=== PATIENT | female | born 1990 | race Two or more races ===

== ENCOUNTER 2021-09-11 10:21 | Emergency (ER) | payer MEDICAID ==
[~2021-09-11] VITALS: Ht 160 cm; Wt 72.6 kg
--- NOTE | 2021-09-11 10:40 | NUR ---
BIBS FOR C/O EPIGASTRIC PAIN 06/10 SINCE 0500,H/O GALLSTONE. ABDOMEN SOFT AND NON-DISTENDED.WILL CONTINUE TO MONITOR THE PATIENT.
[2021-09-11] MEDS ORDERED: MORPHINE SULFATE INJ 2 MG/ML DISP.SYRIN IV ONE (11:00)
[2021-09-11] MEDS ORDERED: IV NS 0.9% 1,000 ML BAG IV ONE (11:00)
[2021-09-11] MEDS ORDERED: ONDANSETRON HCL/PF 4 MG/2 ML VIAL IVP ONE (11:00)
[2021-09-11] MEDS ORDERED: MORPHINE SULFATE INJ 4 MG/ML DISP.SYRIN ONE (11:08)
[2021-09-11] MEDS ORDERED: ONDANSETRON HCL/PF 4 MG/2 ML VIAL ONE (11:08)
[2021-09-11 11:14] LABS: BASOPHILS % (AUTO) 0.5 % (0.0-2.0); HEMATOCRIT 37 % (33-45); HEMOGLOBIN 12.4 g/dL (11.5-14.8); LYMPHOCYTES # (AUTO) 2.6 K/uL (0.8-4.8); LYMPHOCYTES % (AUTO) 31.7 % (20.0-44.0); MEAN CORPUSCULAR HGB CONC 33 g/dl (31.0-36.0); MEAN CORPUSCULAR VOLUME 90 fL (82-100); MONOCYTES # (AUTO) 0.6 K/uL (0.1-1.30); MONOCYTES % (AUTO) 7.3 % (2.0-12.0); NEUTROPHILS # (AUTO) 4.9 K/uL (1.8-8.9); NEUTROPHILS % (AUTO) 58.5 % (43.0-81.0); PLATELET COUNT (AUTO) 263 K/uL (150-450); RED BLOOD CELL COUNT(AUTO) 4.14 MIL/uL (4.0-5.2); WHITE BLOOD COUNT (AUTO) 8.4 K/uL (4.3-11.0)
[2021-09-11 11:46] LABS: CALCIUM, SERUM 8.3 mg/dL (8.5-10.1); CREATININE 0.7 mg/dL (0.6-1.3); POTASSIUM 3.6 mmol/L (3.5-5.1)
[2021-09-11 11:52] LABS: ALBUMIN 3.6 g/dL (3.4-5.0); BILIRUBIN,DIRECT 0.1 mg/dL (0.0-0.2); BILIRUBIN,TOTAL 0.3 mg/dL (0.2-1.0); TOTAL PROTEIN, SERUM 7.7 g/dL (6.4-8.2)
[2021-09-11] MEDS ORDERED: MAG HYDROX/AL HYDROX/SIMETH 30 ML UDC PO ONE (12:00)
[2021-09-11] MEDS ORDERED: LIDOCAINE VISCOUS 2% UD 15 ML UDC MM ONE (12:00)
[2021-09-11] MEDS ORDERED: KETOROLAC TROMETHAMINE INJ 30 MG/ML VIAL IV ONE (12:00)
[2021-09-11] MEDS ORDERED: IBUP-1957 PO (12:05)
[2021-09-11] MEDS ORDERED: TRAM50TA2 PO (12:05)
[2021-09-11] MEDS ORDERED: LIDOCAINE VISCOUS 2% UD 15 ML UDC ONE (12:48)
[2021-09-11] MEDS ORDERED: MAG HYDROX/AL HYDROX/SIMETH 30 ML UDC ONE (12:48)
[2021-09-11] MEDS ORDERED: KETOROLAC TROMETHAMINE INJ 30 MG/ML VIAL ONE (12:48)
--- NOTE | 2021-09-11 13:02 | NUR ---
IV removed. Catheter intact and site benign. Pressure and 4x4 applied to site. No bleeding noted.Patient discharged to home in stable condition. Written and verbal after care instructions given. Patient verbalizes understanding of instruction.
[2021-09-11 13:03] VITALS: BP 126/85
== END 2021-09-11 13:04 | disposition home or self-care (01) ==
LOC: ER 10:26
DX: R10.13 Epigastric pain (principal); Z88.2 Allergy status to sulfonamides; Z79.899 Other long term (current) drug therapy
CPT/HCPCS: 36415; 76705; 80048; 80076; 83690; 84703; 85025; 96361; 96374; 96375; 99284; J1885; J2270; J2405; J7030

== ENCOUNTER 2022-07-02 19:37 | Emergency (ER) | payer MEDICAID ==
[~2022-07-02] VITALS: Ht 162.6 cm; Wt 77.1 kg
[~2022-07-02 19:37] MED LIST: IBUP-1957 PO; TRAM50TA2 PO
--- NOTE | 2022-07-02 20:35 | NUR ---
SERINA FROM HOME C/O ABD "GALLBLADDER" AND BACK PAIN X2 DAYS. PATIENT TOOK IBUPROFEN BUT NO RELIEF. PATIENT IS AAOX4. ABLE TO MAKE NEEDS KNOWN. ATTACHED TO MONITOR. VITALS CHECKED.
--- NOTE | 2022-07-02 20:41 | NUR ---
URINE COLLECTED AND SENT TO LAB
--- NOTE | 2022-07-02 20:54 | NUR ---
Norah carlos in ED - 07/02/22 at 2055 by ANDRES Patient discharged to home in stable condition. Written and verbal after care instructions given. Patient verbalizes understanding of instruction.
--- NOTE | 2022-07-02 20:55 | NUR ---
MANUEL DONE AT BEDSIDE
--- NOTE | 2022-07-02 21:00 | NUR ---
SEEN BY ALENA GREENBERG AT BEDSIDE
--- NOTE | 2022-07-02 21:18 | NUR ---
SEEN BY DR SNYDER
--- NOTE | 2022-07-02 21:28 | NUR ---
SEEN BY DR TAVERA AT BEDSIDE
[2022-07-02 21:30] LABS: BASOPHILS % (AUTO) 0.2 % (0.0-2.0); HEMATOCRIT 36 % (33-45); HEMOGLOBIN 11.9 g/dL (11.5-14.8); LYMPHOCYTES # (AUTO) 2.5 K/uL (0.8-4.8); LYMPHOCYTES % (AUTO) 26.5 % (20.0-44.0); MEAN CORPUSCULAR HGB CONC 33 g/dl (31.0-36.0); MEAN CORPUSCULAR VOLUME 90 fL (82-100); MONOCYTES # (AUTO) 0.7 K/uL (0.1-1.30); MONOCYTES % (AUTO) 7.7 % (2.0-12.0); NEUTROPHILS % (AUTO) 62.6 % (43.0-81.0); PLATELET COUNT (AUTO) 223 K/uL (150-450); RED BLOOD CELL COUNT(AUTO) 3.96 MIL/uL (4.0-5.2); WHITE BLOOD COUNT (AUTO) 9.5 K/uL (4.3-11.0)
[2022-07-02] MEDS ORDERED: ONDANSETRON HCL 4 MG/5 ML SOLUTION PO ONE (21:30)
[2022-07-02 21:49] LABS: CALCIUM, SERUM 8.8 mg/dL (8.5-10.1); CREATININE 0.7 mg/dL (0.6-1.3); POTASSIUM 3.7 mmol/L (3.5-5.1)
[2022-07-02] MEDS ORDERED: ONDANSETRON 4 MG TAB.RAPDIS ONE (21:58)
[2022-07-02 22:00] LABS: BILIRUBIN,URINE NEGATIVE (NEGATIVE); COLOR,URINE YELLOW (YELLOW); LEUKOCYTE ESTERASE ,URINE NEGATIVE (NEGATIVE); NITRITE, URINE NEGATIVE (NEGATIVE); PROTEIN,URINE NEGATIVE (NEGATIVE); UGLUCOSE NEGATIVE (NEGATIVE); UROBILINOGEN,URINE 0.2 EU/dL (0.2)
[2022-07-02 22:01] LABS: BILIRUBIN,DIRECT 0.2 mg/dL (0.0-0.2); BILIRUBIN,TOTAL 0.8 mg/dL (0.2-1.0)
[2022-07-02] MEDS ORDERED: KETOROLAC TROMETHAMINE INJ 60 MG/2 ML VIAL IM ONE ×2 (22:16→22:26)
[2022-07-02] MEDS ORDERED: IBUP-1955 PO (22:53)
[2022-07-02] MEDS ORDERED: ONDA4TAB5 PO (22:53)
--- NOTE | 2022-07-02 23:04 | NUR ---
Patient discharged to home in stable condition. Written and verbal after care instructions given. Patient verbalizes understanding of instruction.
[2022-07-02 23:05] VITALS: BP 115/73
[2022-07-03 00:08] LABS: BACTERIA,URINE Rare /HPF (None Seen); RBC,URINE 0-2 /HPF (0-2); SQUAMOUS EPITHELIAL CELL,UR Moderate /HPF (None Seen)
[2022-07-05] MEDS ORDERED: ONDA4TAB5 PO (07:24)
[2022-07-05] MEDS ORDERED: AMOX-430 PO (07:24)
[2022-07-05] MEDS ORDERED: HYDR-3972 PO (07:24)
== END 2022-07-02 23:05 | disposition home or self-care (01) ==
LOC: ER 19:45
DX: K80.50 Calculus of bile duct without cholangitis or cholecystitis without obstruction (principal); K80.20 Calculus of gallbladder without cholecystitis without obstruction; R10.11 Right upper quadrant pain; Z88.2 Allergy status to sulfonamides; Z79.899 Other long term (current) drug therapy
CPT/HCPCS: 99284; 76705; 96372; 85025; 80048; 83690; 80076; 84703; 81001; 36415; J1885; Q0162

== ENCOUNTER 2022-07-03 12:04 | Inpatient (IN) | payer MEDICAID ==
[~2022-07-03] VITALS: Ht 165.1 cm; Wt 77.1 kg
[~2022-07-03 12:04] MED LIST changes: +IBUP-1955 PO; +ONDA4TAB5 PO
--- NOTE | 2022-07-03 12:15 | NUR ---
Received pt 31 yrs female came from home walking in c/o abdominale pain since yesterday and DX WITH CHOLESITITIS
[2022-07-03] MEDS ORDERED: MORPHINE SULFATE INJ 2 MG/ML DISP.SYRIN IV ONE (12:30)
[2022-07-03] MEDS ORDERED: ONDANSETRON HCL/PF - ER 4 MG/2 ML VIAL IV ONE (12:30)
[2022-07-03] MEDS ORDERED: ONDANSETRON HCL/PF 4 MG/2 ML VIAL ONE (12:36)
[2022-07-03] MEDS ORDERED: MORPHINE SULFATE INJ 4 MG/ML DISP.SYRIN ONE (12:36)
--- NOTE | 2022-07-03 12:50 | NUR ---
blood drow by lab tach
[2022-07-03 12:55] LABS: CALCIUM, SERUM 8.8 mg/dL (8.5-10.1); CREATININE 0.8 mg/dL (0.6-1.3); POTASSIUM 3.9 mmol/L (3.5-5.1)
[2022-07-03 13:01] LABS: ALBUMIN 3.8 g/dL (3.4-5.0); BILIRUBIN,DIRECT 0.3 mg/dL (0.0-0.2); BILIRUBIN,TOTAL 0.9 mg/dL (0.2-1.0); TOTAL PROTEIN, SERUM 7.9 g/dL (6.4-8.2)
--- NOTE | 2022-07-03 13:13 | NUR ---
ABDOMINAL US DONE AT BED SIDE
[2022-07-03 13:19] LABS: BASOPHILS % (AUTO) 0.4 % (0.0-2.0); EOSINOPHILS % (AUTO) 3.3 % (0.0-6.0); HEMATOCRIT 35 % (33-45); HEMOGLOBIN 12.2 g/dL (11.5-14.8); LYMPHOCYTES # (AUTO) 1.8 K/uL (0.8-4.8); LYMPHOCYTES % (AUTO) 17.7 % (20.0-44.0); MEAN CORPUSCULAR HGB CONC 34 g/dl (31.0-36.0); MEAN CORPUSCULAR VOLUME 88 fL (82-100); MONOCYTES % (AUTO) 9.5 % (2.0-12.0); NEUTROPHILS % (AUTO) 69.1 % (43.0-81.0); PLATELET COUNT (AUTO) 230 K/uL (150-450); RED BLOOD CELL COUNT(AUTO) 4.02 MIL/uL (4.0-5.2); WHITE BLOOD COUNT (AUTO) 10.1 K/uL (4.3-11.0)
--- NOTE | 2022-07-03 13:44 | NUR ---
DR. SNYDER SPEAKING WITH DR. JOHNSON.
--- NOTE | 2022-07-03 13:54 | NUR ---
MOVE SHEET SUBMITTED.
[2022-07-03] MEDS ORDERED: PIPERACILLIN /TAZOBACTAM 3.375 G in IV D5W 50 ML IV ONE (14:30)
--- NOTE | 2022-07-03 15:00 | NUR ---
UA SENT TO LAB
--- NOTE | 2022-07-03 15:10 | NUR ---
COVID SWAB SENT TO LAB
--- NOTE | 2022-07-03 16:36 | NUR ---
[facility] CALLED FIBER TECHNOLOGIST PAGED.
--- NOTE | 2022-07-03 16:40 | NUR ---
[facility] for medicale floor bed
[2022-07-03] MEDS ORDERED: ACETAMINOPHEN 325 MG TABLET PO PRN (17:00)
--- NOTE | 2022-07-03 17:03 | NUR ---
GOT BED 321-2
--- NOTE | 2022-07-03 17:40 | NUR ---
HAND OFF GEORGINA RN TO ROOM 325-1 VS STABLE
--- NOTE | 2022-07-03 18:08 | NUR ---
RN MS NOTES RECEIVED PT FROM E.R. STAFF VIA ISABEL, PT IS AWAKE, ALERT AND ORIENTED, NOT IN DISTRESS, NO COMPLAINT AT THIS TIME, STATES THAT SHE IS HUNGRY, ROOM SET UP ORIENTATION PROVIDED TO PT, VERBALIZED UNDERSTANDING, VITALS TAKEN AND RECORDED, SEEN AND EXAMINED BY DR. SNYDER, ORDERS GIVEN FOR LAPAROSCOPIC CHOLECYSTECTOMY POSSIBLE OPEN FOR TOMORROW, NPO AFTER MIDNIGHT, PT INFORMED, KEPT COMFORTABLE IN BED.
[2022-07-03 18:12] VITALS: BP 123/78
[2022-07-03] MEDS: IV NS 0.9% 1,000 ML IV SCH (18:25)
[2022-07-03] MEDS: MORPHINE SULFATE INJ 2 MG/ML DISP.SYRIN IV PRN ×2 (18:26→22:46)
[2022-07-03 18:30] VITALS: BP 123/78
--- NOTE | 2022-07-03 19:34 | NUR ---
RN OPENING NOTES; RECEIVED PT IN BED AAOX4 ABLE TO MAKE NEEDS KNOWN,AHMET WELL ON RM AIR,NO SIGN SOB/DISTRESS NOTED.NO COMPLAIN OF PAIN/DISCOMFORT AT THIS TIME,IV ACCESS ONR WRIST 20G.PATETN AND INTACT,SAFETY MEASURE INPLACE,CALL LIGHT WITHIN REACH.WILL CONTINUE TO MONITOR.
[2022-07-03 20:00] VITALS: BP 122/89
[2022-07-03] MEDS: CEFEPIME 2 GM in IV D5W 100 ML IV SCH (20:08)
--- NOTE | 2022-07-03 22:46 | NUR ---
RN NOTES; PT COMPLAINED OD ABDOMINAL PAIN 8/10'PRN MORPHINE 2MG WAS GIVEN.NO SIGN A/R NOTED.
[2022-07-04] MEDS: MORPHINE SULFATE INJ 2 MG/ML DISP.SYRIN IV PRN ×3 (03:20→19:17)
--- NOTE | 2022-07-04 03:27 | NUR ---
RN NOTES; PT COMPLAINED OD ABDOMINAL PAIN 8/10'PRN MORPHINE 2MG WAS GIVEN.NO SIGN A/R NOTED.
[2022-07-04] MEDS: CEFEPIME 2 GM in IV D5W 100 ML IV SCH ×3 (04:06→20:42)
[2022-07-04] MEDS: IV NS 0.9% 1,000 ML IV SCH ×2 (05:31→20:05)
--- NOTE | 2022-07-04 06:19 | NUR ---
RN CLOSING NOTES; PT IN BED AAOX4 ABLE TO MAKE NEEDS KNOWN,AHMET WELL ON RM AIR,NO SIGN SOB/DISTRESS NOTED.PT COMPLAIN OF ABDOMINAL PAIN 8/,PRN MORPHINE 2MG WAS GIVEN,NO A/R NOTED,DUE MEDS GIVEN ORDER.ALL NEEDS ATTENDED,PT WAS NPO BEFORE MIDNIGHT,IV ACCESS ON R WRIST 20G WITH NS 0.9% @ 75ML/HR.PATETN AND INTACT,SAFETY MEASURE INPLACE,CALL LIGHT WITHIN REACH.WILL ENDORSED TO NEXT SHIFT.
[2022-07-04 06:53] LABS: BASOPHILS % (AUTO) 0.3 % (0.0-2.0); EOSINOPHILS % (AUTO) 2.3 % (0.0-6.0); HEMATOCRIT 33 % (33-45); HEMOGLOBIN 11.1 g/dL (11.5-14.8); LYMPHOCYTES # (AUTO) 1.9 K/uL (0.8-4.8); LYMPHOCYTES % (AUTO) 19.5 % (20.0-44.0); MEAN CORPUSCULAR HGB CONC 33 g/dl (31.0-36.0); MEAN CORPUSCULAR VOLUME 90 fL (82-100); MONOCYTES # (AUTO) 0.8 K/uL (0.1-1.30); MONOCYTES % (AUTO) 7.7 % (2.0-12.0); NEUTROPHILS # (AUTO) 6.9 K/uL (1.8-8.9); NEUTROPHILS % (AUTO) 70.2 % (43.0-81.0); PLATELET COUNT (AUTO) 211 K/uL (150-450); RED BLOOD CELL COUNT(AUTO) 3.67 MIL/uL (4.0-5.2); WHITE BLOOD COUNT (AUTO) 9.8 K/uL (4.3-11.0)
[2022-07-04 07:03] LABS: ALBUMIN 3.3 g/dL (3.4-5.0); BILIRUBIN,TOTAL 0.9 mg/dL (0.2-1.0); CREATININE 0.7 mg/dL (0.6-1.3); MAGNESIUM 1.9 mg/dL (1.8-2.4); PHOSPHORUS 3.2 mg/dL (2.5-4.9); POTASSIUM 3.7 mmol/L (3.5-5.1); TOTAL PROTEIN, SERUM 7.3 g/dL (6.4-8.2)
[2022-07-04] MEDS ORDERED: FENTANYL PF 100MCG/2ML AMPUL ONE (07:07)
[2022-07-04] MEDS ORDERED: HYDROMORPHONE INJ 2 MG/ML DISP.SYRIN ONE (07:07)
[2022-07-04] MEDS ORDERED: MIDAZOLAM HCL 2 MG/2ML VIAL ONE (07:07)
[2022-07-04] MEDS ORDERED: ROCURONIUM BROMIDE 50 MG/5 ML ONE (07:08)
[2022-07-04] MEDS ORDERED: FAMOTIDINE/PF INJ 20 MG/2 ML VIAL IV ONE (07:08)
[2022-07-04] MEDS ORDERED: BUPIVACAINE MPF 0.5% W/EPI INJ 30 ML VIAL ONE (07:10)
[2022-07-04] MEDS ORDERED: LIDOCAINE 1% INJ 50 ML MDV IJ ONE (07:10)
[2022-07-04] MEDS ORDERED: ANESTHESIA TRAY IN PYXIS 1 EA TRAY MC ONE (07:11)
--- NOTE | 2022-07-04 07:15 | NUR ---
MS RN OPENING NOTES: RECEIVED PT IN BED AWAKE, AOX4 ABLE TO MAKE NEEDS KNOWN. ON RA WITH NO S/S OF SOB/DISTRESS NOTED. PT REPORTS TOLERABLE PAIN AT 2-3/10 AT THE MOMENT . IV ACCESS ON R WRIST 20G WITH NS 0.9% @ 75ML/HR. SAFETY MEASURES IN PLACE, CALL LIGHT AND TABLE WITHIN REACH, WILL CONT WITH PLAN OF CARE DURING SHIFT.
--- NOTE | 2022-07-04 07:16 | NUR ---
MS RN NOTES: PT TRANSPORTED TO OR VIA GURNEY BY OR STAFF. VS, WNL, CHECKLIST AND CONSENTS COMPLETED.
[2022-07-04] MEDS ORDERED: BACITRACIN ZINC OINT PACKET 1 EA PACKET TP ONE (09:43)
--- NOTE | 2022-07-04 11:04 | NUR ---
MS RN NOTES: PT CAME BACK FROM OR VIA SAM @7971. PT STABLE, AWAKE, A/OX4. RECEIVED BEDSIDE REPORT FROM RAVI WOODARD. PT VITALS STABLE, BP- 128/80, HR- 107, TEMP -98.8, O2 SAT ON RA 97%. NO S/S OF SOB/ACUTE DISTRESS NOTED. REPORTS PAIN 4-5/10 BUT DECLINES MEDICATION AT THIS TIME. NOTED 3 DRESSINGS AT RIGHT QUADRANT, DRY, CLEAN AND INTACT. PT REORIENTED TO UNIT AND STAFF. SAFETY MEASURES IN PLACE, CALL LIGHT AND TABLE WITHIN REACH. ENCOURAGE PT TO USE CALL LIGHT FOR HELP, VERBALIZED UNDERSTANDING. POST OP ORDERS REVIEWED, WILL CONT WITH PLAN OF CARE DURING SHIFT.
[2022-07-04] MEDS ORDERED: IV LR 1000 ML 1,000 ML IV ONE (11:30)
[2022-07-04 11:38] LABS: BILIRUBIN,URINE NEGATIVE (NEGATIVE); COLOR,URINE YELLOW (YELLOW); LEUKOCYTE ESTERASE ,URINE NEGATIVE (NEGATIVE); NITRITE, URINE NEGATIVE (NEGATIVE); PH,URINE 6.5 (5.0-8.0); PROTEIN,URINE NEGATIVE (NEGATIVE); UGLUCOSE NEGATIVE (NEGATIVE); UROBILINOGEN,URINE 0.2 EU/dL (0.2)
[2022-07-04 12:06] LABS: BACTERIA,URINE Few /HPF (None Seen); SQUAMOUS EPITHELIAL CELL,UR Few /HPF (None Seen); WBC,URINE 0-2 /HPF (0-3)
[2022-07-04 13:00] VITALS: BP 128/80
[2022-07-04] MEDS ORDERED: MULT-754 PO (13:42)
[2022-07-04] MEDS: ONDANSETRON HCL/PF 4 MG/2 ML VIAL IVP PRN ×2 (13:59→20:05)
[2022-07-04 16:00] VITALS: BP 108/75
[2022-07-04] MEDS ORDERED: ENOXAPARIN SODIUM 40 MG/0.4 ML DISP.SYRIN SQ SCH (18:00)
--- NOTE | 2022-07-04 19:04 | NUR ---
MS RN CLOSING NOTES: PT IN BED ASLEEP BUT EASILY ROUSED. A/OX4, ABLE TO MAKE NEEDS KNOWN. FAMILY AT BEDSIDE. PT ON RM AIR WITH NO S/S OF SOB/DISTRESS NOTED. IV ACCESS AT R WRIST #20 SL, PATENT AND INTACT; IV ACCESS AT L HAND #22 INFUSING LR AT 100ML/HR. PT REPORTS PAIN 3/10, DECLINED MEDICATION AT THIS TIME. ALL NEEDS ATTENDED, DUE MEDS GIVEN, KEPT PT COMFORTABLE. SAFETY MEASURE IN PLACE,CALL LIGHT WITHIN REACH, WILL ENDORSE TO NEXT SHIFT.
--- NOTE | 2022-07-04 19:30 | NUR ---
MS RN OPENING NOTE PATIENT AWAKE IN BED WITH FAMILY AT BEDSIDE, PT ALERT/ORIENTED X 4, PT ABLE TO MAKE NEEDS KNOWN. PT STABLE ON RA, NO S/S OF DISTRESS OR SOB NOTED, BREATHING EVEN AND UNLABORED. PATIENT C/O NAUSEA, WILL ADMINISTER ZOFRAN SOON WHEN DUE. PT JUST RECEIVED MORPHINE PER DAYSHIFT RN, PT STILL C/O SOME PAIN WHEN MOVING IN BED OR AMBULATING. PATIENT AMBULATED TO BATHROOM WITH STEADY GAIT. PT S/P LAP NIGEL THIS AM, 3 SITES WITH DRESSING CLEAN, DRY AND INTACT. IV ACCESS ON LEFT WRIST #22G INTACT AND SALINE LOCKED, RIGHT WRIST #20G IV ACCESS INTACT AND INFUSING LR @ 100 ML/HR. SAFETY MEASURES IN PLACE: CALL LIGHT WITHIN REACH, SIDE RAILS UP X 2, BED LOCKED IN LOWEST POSITION. WILL CONTINUE TO MONITOR PATIENT
[2022-07-04 20:00] VITALS: BP 108/72
[2022-07-05] MEDS: MORPHINE SULFATE INJ 2 MG/ML DISP.SYRIN IV PRN ×3 (02:22→12:08)
[2022-07-05] MEDS: CEFEPIME 2 GM in IV D5W 100 ML IV SCH ×2 (05:13→13:52)
--- NOTE | 2022-07-05 06:50 | NUR ---
MS RN CLOSING NOTE PATIENT SLEEPING IN BED, PT ALERT/ORIENTED X 4, PT ABLE TO MAKE NEEDS KNOWN. PT STABLE ON RA, NO S/S OF DISTRESS OR SOB NOTED, BREATHING EVEN AND UNLABORED. PT S/P LAP NIGEL, 3 SITES WITH DRESSING CLEAN, DRY AND INTACT. IV ACCESS ON LEFT WRIST #22G INTACT AND SALINE LOCKED, RIGHT WRIST #20G IV ACCESS INTACT AND INFUSING NS @ 75 ML/HR. MEDICATIONS GIVEN ORDERED, PT NEEDS MET THROUGHOUT SHIFT. SAFETY MEASURES IN PLACE: CALL LIGHT WITHIN REACH, SIDE RAILS UP X 2, BED LOCKED IN LOWEST POSITION. WILL ENDORSE TO DAYSHIFT NURSE FOR CONTINUITY OF CARE
[2022-07-05] MEDS ORDERED: HYDR-3972 PO (07:24)
[2022-07-05] MEDS ORDERED: ONDA4TAB5 PO (07:24)
[2022-07-05] MEDS ORDERED: AMOX-430 PO (07:24)
[2022-07-05 08:10] VITALS: BP 104/66
--- NOTE | 2022-07-05 08:28 | NUR ---
MS RN OPENING NOTES; RECEIVED PATIENT AWAKE IN BED, ALERT/ORIENTED X 4, PT ABLE TO MAKE NEEDS KNOWN. PT STABLE ON RA, NO S/S OF DISTRESS OR SOB NOTED, BREATHING EVEN AND UNLABORED. PT S/P LAP NIGEL, 3 SITES WITH DRESSING CLEAN, DRY AND INTACT. PT C/O OF PAIN 04/10, WILL MEDICATE ORDERED. DIET CHANGED TO FULL LIQUID PER MD ORDER. PT REPORTS STILL UNABLE TO PASS GAS SINCE 07/04/22, POST OP, MADE MD AWARE. IV ACCESS ON LEFT WRIST #22G INTACT AND SALINE LOCKED, RIGHT WRIST #20G IV ACCESS INTACT AND INFUSING NS @ 75 ML/HR. SAFETY MEASURES IN PLACE: CALL LIGHT WITHIN REACH, SIDE RAILS UP X 2, BED LOCKED IN LOWEST POSITION, WILL CONT WITH PLAN OF CARE DURING SHIFT.
[2022-07-05] MEDS: IV NS 0.9% 1,000 ML IV SCH (09:00)
[2022-07-05] MEDS: ONDANSETRON HCL/PF 4 MG/2 ML VIAL IVP PRN (11:12)
--- NOTE | 2022-07-05 15:00 | NUR ---
MS DIRECTOR PROCESS ENGINEERING NOTES: PT STABLE FOR DISCHARGE. VITALS WNL, NO S/S OF SOB AND ACUTE DISTRESS ON RA. PAIN LEVEL 2-3/10, WHICH PT STATES IS TOLERABLE. DC INSTRUCTIONS, BELONGINGS LIST AND NEW MEDICATION DISCUSSED WITH PT AND PARTNER, PT SIGNED DOCS. GIVEN DR SNYDER'S OFFICE INFO FOR POST OP FOLLOW UP, GIVEN LIST OF RESOURCES FOR PRIMARY CARE PROVIDER. ID BAND AND IV ACCESS REMOVED. PT ESCORTED TO LOBBY BY STAFF VIA WHEELCHAIR, PARTNER MET PT AND STAFF IN FRONT OF LOBBY VIA PRIVATE CAR.
== END 2022-07-05 15:00 | disposition home or self-care (01) | DRG 263 ==
LOC: ER 12:42 → MED 17:37
PROVIDERS: ADMIT Internal Medicine; ATTEND Internal Medicine
PROC: 0FT44ZZ Resection of Gallbladder, Percutaneous Endoscopic Approach (ICD-10-PCS; principal; 2022-07-04)
PROC: 0F944ZZ Drainage of Gallbladder, Percutaneous Endoscopic Approach (ICD-10-PCS; 2022-07-04)
DX: K80.12 Calculus of gallbladder with acute and chronic cholecystitis without obstruction (principal); K82.1 Hydrops of gallbladder; E87.1 Hypo-osmolality and hyponatremia; Z88.2 Allergy status to sulfonamides; Z20.822 Contact with and (suspected) exposure to COVID-19
CPT/HCPCS: 36415; 76705-TC; 80048-TC; 80053-TC; 80076-TC; 81001; 83605-TC; 83690-TC; 83735-TC; 84100-TC; 84702-TC; 85025-TC; 86850-TC; 87081-TC; A6209; C9803; G0378; J0690; J0692; J1100; J1170; J1650; J2250; J2270; J2405; J2543; J2704; J2765; J3010; J3490; J7030; J7060; J7120

== ENCOUNTER 2025-06-26 20:53 | Inpatient (IN) | payer MEDICAID, OTHER ==
[~2025-06-26] VITALS: Ht 160 cm; Wt 79.4 kg
[~2025-06-26 20:53] MED LIST changes: +AMOX-430 PO; +HYDR-3972 PO; -IBUP-1957 PO; +MULT-754 PO; -TRAM50TA2 PO
[2025-06-26] MEDS ORDERED: KETOROLAC TROMETHAMINE 15 MG/ML VIAL ONE (22:49)
[2025-06-26] MEDS ORDERED: ACETAMINOPHEN ES 500 MG TABLET ONE (22:50)
[2025-06-26] MEDS ORDERED: METOCLOPRAMIDE HCL 10 MG/2 ML VIAL ONE (22:50)
[2025-06-26] MEDS: IV NS 0.9% 1,000 ML BAG IV ONE (23:03)
[2025-06-26] MEDS: METOCLOPRAMIDE HCL 10 MG/2 ML VIAL IV ONE (23:03)
[2025-06-26 23:22] LABS: PLATELET COUNT (AUTO) 219 K/uL (150-450); RED BLOOD CELL COUNT(AUTO) 4.22 MIL/uL (4.0-5.2); RED CELL DISTRIBUTION WIDTH 13.2 % (11.5-15.0); WHITE BLOOD COUNT (AUTO) 14.1 K/uL (4.3-11.0)
[2025-06-26 23:27] LABS: CALCIUM, SERUM 9.0 mg/dL (8.5-10.1); CREATININE 0.8 mg/dL (0.6-1.3); SODIUM SERUM 136.0 mmol/L (136-145); UREA NITROGEN, BLOOD 9.0 mg/dL (7-18)
[2025-06-26 23:35] LABS: ASPARTATE AMINOTRANSFERASE 19.0 U/L (15-37); TOTAL PROTEIN, SERUM 8.5 g/dL (6.4-8.2)
[2025-06-26 23:48] LABS: APPEARANCE,URINE CLEAR (CLEAR); BLOOD, URINE 2+ Ery/uL (NEGATIVE); LEUKOCYTE ESTERASE ,URINE NEGATIVE (NEGATIVE); NITRITE, URINE NEGATIVE (NEGATIVE); UGLUCOSE NEGATIVE (NEGATIVE)
[2025-06-26 23:49] LABS: PREGNANCY TEST URINE QUAL NEGATIVE (NEGATIVE)
[2025-06-26] MEDS: KETOROLAC TROMETHAMINE 15 MG/ML VIAL IV ONE (23:54)
[2025-06-26] MEDS: ACETAMINOPHEN ES 500 MG TABLET PO ONE (23:57)
[2025-06-26] MEDS ORDERED: CT SWABBABLE VALVE TRANS SET 1 EA INFUS.SET MC ONE (23:58)
[2025-06-26] MEDS ORDERED: IV NS 0.9% 250 ML IV ONE (23:58)
[2025-06-26] MEDS ORDERED: IOHEXOL-300 100 ML VIAL IV ONE (23:58)
[2025-06-27] VITALS (7 sets, daily range): BP systolic 86–114; BP diastolic 58–81; TEMP 98.6–102; O2SAT 97–100
[2025-06-27 00:13] LABS: ADD URINE CULTURE YES; SQUAMOUS EPITHELIAL CELL,UR 0-2 /HPF (None Seen)
[2025-06-27] MEDS ORDERED: PIPERACI/TAZO 3.375GM/D5W 50ML PB IV ONE ×2 (01:04→05:30)
[2025-06-27] MEDS: IV NS 0.9% 1,000 ML BAG IV ONE (01:15)
[2025-06-27] MEDS: PIPERACILLIN /TAZOBACTAM 3.375 G in IV D5W 50 ML IV ONE ×2 (01:15→05:35)
[2025-06-27] MEDS ORDERED: Z GUARD REMEDY 4 OZ OINT TP PRN (02:30)
[2025-06-27] MEDS ORDERED: IV NS 0.9% 1,000 ML IV PRN (02:30)
[2025-06-27] MEDS ORDERED: MAGNESIUM HYDROXIDE 30 ML UDC PO PRN (02:30)
[2025-06-27] MEDS ORDERED: MAG HYDROX/AL HYDROX/SIMETH 30 ML UDC PO PRN (02:30)
[2025-06-27] MEDS ORDERED: HYDROMORPHONE 1 MG/1 ML DISP.SYRIN IV PRN (02:30)
[2025-06-27] MEDS: IV LR 1000 ML 1,000 ML IV ONE ×2 (03:05→03:06)
[2025-06-27] MEDS: IV NS 0.9% 1,000 ML IV PRN (03:06)
[2025-06-27] MEDS: ACETAMINOPHEN 325 MG TABLET PO PRN (05:32)
[2025-06-27] MEDS: ONDANSETRON HCL/PF 4 MG/2 ML VIAL IVP PRN (05:43)
[2025-06-27] MEDS: MULTIVITAMINS,THERAGRAN 1 UDTAB TABLET PO SCH (09:00)
[2025-06-27] MEDS: PIPERACILLIN /TAZOBACTAM 3.375 G in IV D5W 50 ML IV SCH (11:54)
[2025-06-28] VITALS: BP_SYST 104; BP_DIAS 64; BP_DIAS 69; TEMP 98.6; O2SAT 97
[2025-06-28 04:00] VITALS: BP 97/68; TEMP 98.1; O2SAT 99
[2025-06-28 07:42] LABS: PLATELET COUNT (AUTO) 193 K/uL (150-450); RED BLOOD CELL COUNT(AUTO) 3.56 MIL/uL (4.0-5.2); RED CELL DISTRIBUTION WIDTH 13.0 % (11.5-15.0); WHITE BLOOD COUNT (AUTO) 9.9 K/uL (4.3-11.0)
[2025-06-28 07:46] LABS: CALCIUM, SERUM 8.0 mg/dL (8.5-10.1); CREATININE 0.7 mg/dL (0.6-1.3); PHOSPHORUS 2.4 mg/dL (2.5-4.9); SODIUM SERUM 139.0 mmol/L (136-145); UREA NITROGEN, BLOOD 6.0 mg/dL (7-18)
[2025-06-28 08:00] VITALS: BP 115/71; TEMP 98.8; O2SAT 99
[2025-06-28 16:00] VITALS: BP 124/84; TEMP 97.9; O2SAT 99
[2025-06-28] MEDS: K PHOS NEUTRAL 250 MG TABLET PO ONE (16:48)
[2025-06-28 20:00] VITALS: BP_SYST 105; BP_SYST 113; BP_DIAS 69; BP_DIAS 83; TEMP 99; O2SAT 98
[2025-06-29 07:48] LABS: PLATELET COUNT (AUTO) 178 K/uL (150-450); RED BLOOD CELL COUNT(AUTO) 3.22 MIL/uL (4.0-5.2); RED CELL DISTRIBUTION WIDTH 12.9 % (11.5-15.0); WHITE BLOOD COUNT (AUTO) 6.9 K/uL (4.3-11.0)
[2025-06-29 08:00] VITALS: BP 105/72; TEMP 98.2; O2SAT 99
[2025-06-29 08:25] LABS: CALCIUM, SERUM 8.1 mg/dL (8.5-10.1); CREATININE 0.6 mg/dL (0.6-1.3); PHOSPHORUS 3.2 mg/dL (2.5-4.9); SODIUM SERUM 143.0 mmol/L (136-145); UREA NITROGEN, BLOOD 6.0 mg/dL (7-18)
[2025-06-29] MEDS ORDERED: LEVO750T46 PO (13:22)
== END 2025-06-29 16:29 | disposition home or self-care (01) | DRG 720 ==
LOC: ER 20:56 → MED 06-27 02:02 → TELE 06-27 02:55 → MED 06-28 12:32
PROVIDERS: ADMIT Nurse Practitioner Family; ATTEND Nurse Practitioner Acute Care
DX: A41.9 Sepsis, unspecified organism (principal); E78.5 Hyperlipidemia, unspecified; K21.9 Gastro-esophageal reflux disease without esophagitis; N10 Acute pyelonephritis; Z88.2 Allergy status to sulfonamides; Z90.49 Acquired absence of other specified parts of digestive tract; Z98.82 Breast implant status; B96.89 Other specified bacterial agents as the cause of diseases classified elsewhere; Z79.899 Other long term (current) drug therapy; N39.0 Urinary tract infection, site not specified
CPT/HCPCS: 36415; 80048-TC; 80053-TC; 81001; 83605-TC; 83690-TC; 83735-TC; 84100-TC; 84703-TC; 85025-TC; 87040-TC; 87086-TC; 87186-TC; A4223; G0378; J1885; J2405; J2543; J2765; J7030; J7050; J7060; J7120; Q9967